=== PATIENT | female | born 1965 | race Caucasian/White ===

== ENCOUNTER 2023-04-02 09:15 | Outpatient (RCR) | payer BC, SELFPAY | END 2023-07-31 23:59 | disposition home or self-care (01) | PROVIDERS: PCP Family Medicine; Visit Provider Family Medicine | DX: M25.561 Pain in right knee (principal); M25.562 Pain in left knee; G89.29 Other chronic pain; M25.551 Pain in right hip; M25.552 Pain in left hip; Z51.89 Encounter for other specified aftercare | CPT/HCPCS: 97110; 97140; 97161 ==